=== PATIENT | female | born 1970 | race Asian ===

== ENCOUNTER 2017-03-23 15:25 | Emergency (ER) | payer OTHER ==
[2017-03-23 16:33] LABS: Basophils % (Auto) 0.6 % (0.0-1.8); Eosinophils % (Auto) 1.9 % (0.0-4.3); Hematocrit 42.6 % (30.3-42.9); Hemoglobin 14.3 gm/dl (10.1-14.3); Mean Corpuscular HGB Conc 34 % (30-34); Mean Corpuscular Hemoglobin 31 pg (28-32); Mean Corpuscular Volume 92 fl (79-97); Platelet Count 281 K/mm3 (140-440); Red Blood Count 4.64 M/mm3 (3.65-5.03); White Blood Count 10.2 K/mm3 (4.5-11.0)
[2017-03-23 16:47] LABS: Anion Gap 19 mmol/L; Blood Urea Nitrogen 12 mg/dL (7-17); Calcium 10.4 mg/dL (8.4-10.2); Carbon Dioxide 24 mmol/L (22-30); Chloride 102.4 mmol/L (98-107); Glucose 99 mg/dL (65-100); Potassium 3.9 mmol/L (3.6-5.0); Sodium 141 mmol/L (137-145)
[2017-03-23 17:07] LABS: Bacteria,Urine 1+ /HPF (Negative); Bilirubin,Urine NEG (Negative); Blood,Urine NEG (Negative); Ketones,Urine NEG (Negative); Leukocyte Esterase,Urine LG (Negative); Mucus,Urine 2+ /HPF; Nitrite,Urine NEG (Negative); Protein,Urine <15 mg/dL mg/dL (Negative)
--- NOTE | 2017-03-23 19:39 | XRay Report ---
FINAL REPORT EXAM: XR KNEE 3V LT HISTORY: LT KNEE INJURY WITH SEVERE PAIN TECHNIQUE: Left knee three views 3 images PRIORS: None. FINDINGS: Bone mineralization appears within normal limits. No acute fracture or subluxation is identified. Left knee effusion is suspected. IMPRESSION: 1. No acute osseous abnormality is identified. 2. Left knee effusion is suspected.
[2017-03-23] MEDS ORDERED: ULTRAM PO ONE (23:03)
[2017-03-23] MEDS ORDERED: MOTRIN PO ONE (23:03)
[2017-03-23 23:23] VITALS: BP 120/76
--- NOTE | 2017-03-23 23:51 | Emergency Department Report ---
ED Chest Pain HPI - General Chief Complaint: Chest Pain Stated Complaint: LEFT KNEE INJURY Time Seen by Provider: 03/23/17 22:46 Source: patient Mode of arrival: Ambulatory Limitations: No Limitations - History of Present Illness Initial Comments: 46-year-old female with a past medical history hypothyroidism, myasthenia gravis , and possible elevated cholesterol presents to the hospital and a C4 fall with associated left the pain but also complains of left upper chest pain and intermittent left arm numbness for several weeks. Patient slipped in water fell striking her left knee. Patient complain 8/10 anterior knee pain since fall. Pain is constant, worse palpation and movement. Improved while remaining still. Patient states she has been having intermittent left arm and numbness and tingling feeling like "something is clogged up". Patient also having intermittent sharp left upper wall chest pain. She denies shortness of breath, calf tenderness, edema, unilateral leg swelling, or recent travel. Patient does smoke cigarettes. She is noncompliant with her Synthroid at this time because she missed her doctor's appointment. Severity scale (0 -10): 8 - Related Data Previous Rx's Medication Instructions Recorded Last Taken Type Ibuprofen [Motrin 800 MG tab] 800 mg PO ONCE #30 tablet 03/24/17 Unknown Rx traMADol [Ultram 50 MG tab] 50 mg PO ONCE #20 tablet 03/24/17 Unknown Rx Allergies Allergy/AdvReac Type Severity Reaction Status Date / Time No Known Allergies Allergy Unverified 03/23/17 15:34 Heart Score - HEART Score History: Slightly suspicious EKG: Non-specific Age: 45-65 Risk factors: 1-2 risk factors Troponin: < normal limit HEART Score: 3 ED Review of Systems ROS: Stated complaint: LEFT KNEE INJURY Other details as noted in HPI Comment: All other systems reviewed and negative Other: General: No fever or chills Eyes: No blurry vision or discharge HEENT: No throat pain Neck: No pain Respiratory: No shortness of breath, wheezing, or coughing Cardiovascular: No palpitations, or syncope GI: No abdominal pain, nausea, vomiting, diarrhea : No dysuria or increased frequency Musculoskeletal: No back pain, no joint swelling Neurologic: Denies headache Psychiatric: Denies hallucinations, suicidal ideation, homicidal ideation Skin: No rash or lesions ED Past Medical Hx - Past Medical History Additional medical history: HYPOTHYROIDISM - Surgical History Additional Surgical History: THYMUS GLAND REMOVED - Social History Smoking Status: Current Every Day Smoker Substance Use Type: None - Medications Home Medications: Home Medications Medication Instructions Recorded Confirmed Last Taken Type Ibuprofen [Motrin 800 MG tab] 800 mg PO ONCE #30 tablet 03/24/17 Unknown Rx traMADol [Ultram 50 MG tab] 50 mg PO ONCE #20 tablet 03/24/17 Unknown Rx ED Physical Exam - General Limitations: No Limitations - Other Other exam information: General: No acute distress, Head: Atraumatic, normocephalic Eyes: Normal appearance HEENT: Moist mucous membranes, normal oropharynx Neck: Full range of motion, normal inspection, no midline tenderness CV: Regular rate and rhythm, no murmur, chest wall nontender Respiratory: Clear to auscultation, no wheezes, rales, or crackles Abdomen: Soft, nondistended, nontender, normal bowel sounds, no rebound or guarding Extremities: Full range of motion, no deformity. Tenderness to the patella tendon area with mild effusion. Back: Normal inspection, nontender, full range of motion Neurologic: Alert and oriented 3, cranial nerves grossly intact, sensation intact and equal bilateral extremities, strength 5/5 upper and lower extremities Psychiatric: Normal mood and affect Skin: No rash ED Course Vital Signs 03/23/17 03/23/17 03/23/17 15:31 23:21 23:22 Temperature 98.6 F 98 F Pulse Rate 67 68 Respiratory 18 20 20 Rate Blood Pressure 152/87 Blood Pressure 120/76 [Left] O2 Sat by Pulse 100 98 Oximetry ED Medical Decision Making - Lab Data Result diagrams: 03/23/17 16:12 03/23/17 16:12 Lab Results 03/23/17 03/23/17 03/23/17 Range/Units 16:12 16:12 16:32 WBC 10.2 (4.5-11.0) K/mm3 RBC 4.64 (3.65-5.03) M/mm3 Hgb 14.3 (10.1-14.3) gm/dl Hct 42.6 (30.3-42.9) % MCV 92 (79-97) fl MCH 31 (28-32) pg MCHC 34 (30-34) % RDW 13.0 L (13.2-15.2) % Plt Count 281 (140-440) K/mm3 Lymph % (Auto) 25.2 (13.4-35.0) % [place] % (Auto) 4.4 (0.0-7.3) % Eos % (Auto) 1.9 (0.0-4.3) % Baso % (Auto) 0.6 (0.0-1.8) % Lymph # 2.6 (1.2-5.4) K/mm3 [place] # 0.4 (0.0-0.8) K/mm3 Eos # 0.2 (0.0-0.4) K/mm3 Baso # 0.1 (0.0-0.1) K/mm3 Seg Neutrophils % 67.9 (40.0-70.0) % Seg Neutrophils # 6.9 (1.8-7.7) K/mm3 Sodium 141 (137-145) mmol/L Potassium 3.9 (3.6-5.0) mmol/L Chloride 102.4 (98-107) mmol/L Carbon Dioxide 24 (22-30) mmol/L Anion Gap 19 mmol/L BUN 12 (7-17) mg/dL Creatinine 0.6 L (0.7-1.2) mg/dL Estimated GFR > 60 ml/min BUN/Creatinine Ratio 20.00 % Glucose 99 (65-100) mg/dL Calcium 10.4 H (8.4-10.2) mg/dL Troponin T < 0.010 (0.00-0.029) ng/mL Urine Color Yellow (Yellow) Urine Turbidity Clear (Clear) Urine pH 5.0 (5.0-7.0) Ur Specific [place] 1.026 (1.003-1.030) Urine Protein <15 mg/dl (Negative) mg/dL Urine Glucose (UA) Neg (Negative) mg/dL Urine Ketones Neg (Negative) mg/dL Urine Blood Neg (Negative) Urine Nitrite Neg (Negative) Ur Reducing Substances Not Reportable Urine Bilirubin Neg (Negative) Urine Ictotest Not Reportable Urine Urobilinogen 2.0 (<2.0) mg/dL Ur Leukocyte Esterase Lg (Negative) Urine WBC (Auto) 11.0 H (0.0-6.0) /HPF Urine RBC (Auto) 4.0 (0.0-6.0) /HPF U Epithel Cells (Auto) 4.0 (0-13.0) /HPF Urine Bacteria (Auto) 1+ (Negative) /HPF Urine Mucus 2+ /HPF Urine HCG, Qual Negative (Negative) 03/23/17 03/23/17 Range/Units 18:54 21:55 WBC (4.5-11.0) K/mm3 RBC (3.65-5.03) M/mm3 Hgb (10.1-14.3) gm/dl Hct (30.3-42.9) % MCV (79-97) fl MCH (28-32) pg MCHC (30-34) % RDW (13.2-15.2) % Plt Count (140-440) K/mm3 Lymph % (Auto) (13.4-35.0) % [place] % (Auto) (0.0-7.3) % Eos % (Auto) (0.0-4.3) % Baso % (Auto) (0.0-1.8) % Lymph # (1.2-5.4) K/mm3 [place] # (0.0-0.8) K/mm3 Eos # (0.0-0.4) K/mm3 Baso # (0.0-0.1) K/mm3 Seg Neutrophils % (40.0-70.0) % Seg Neutrophils # (1.8-7.7) K/mm3 Sodium (137-145) mmol/L Potassium (3.6-5.0) mmol/L Chloride (98-107) mmol/L Carbon Dioxide (22-30) mmol/L Anion Gap mmol/L BUN (7-17) mg/dL Creatinine (0.7-1.2) mg/dL Estimated GFR ml/min BUN/Creatinine Ratio % Glucose (65-100) mg/dL Calcium (8.4-10.2) mg/dL Troponin T < 0.010 < 0.010 (0.00-0.029) ng/mL Urine Color (Yellow) Urine Turbidity (Clear) Urine pH (5.0-7.0) Ur Specific [place] (1.003-1.030) Urine Protein (Negative) mg/dL Urine Glucose (UA) (Negative) mg/dL Urine Ketones (Negative) mg/dL Urine Blood (Negative) Urine Nitrite (Negative) Ur Reducing Substances Urine Bilirubin (Negative) Urine Ictotest Urine Urobilinogen (<2.0) mg/dL Ur Leukocyte Esterase (Negative) Urine WBC (Auto) (0.0-6.0) /HPF Urine RBC (Auto) (0.0-6.0) /HPF U Epithel Cells (Auto) (0-13.0) /HPF Urine Bacteria (Auto) (Negative) /HPF Urine Mucus /HPF Urine HCG, Qual (Negative) - EKG Data -: EKG Interpreted by Me (sinus bradycardia with nonspecific T-wave abnormality) - Radiology Data Radiology results: report reviewed (left knee x-ray: Left knee effusion suspected, no acute osseous abnormality is identified) - Medical Decision Making Patient's chest pain is atypical. Cardiac enzymes negative 3, no signs of ST elevation NC. Outpatient follow-up with the encourage for further testing. No fracture identified. Pain medications will be prescribed. - Differential Diagnosis neuropathy, radiculopathy, fracture, contusion, sprain, PE, NC Critical Care Time: No Critical care attestation.: If time is entered above; I have spent that time in minutes in the direct care of this critically ill patient, excluding procedure time. ED Disposition Clinical Impression: Arm paresthesia, left, Atypical chest pain, Left knee sprain Disposition: TO HOME OR SELFCARE Is pt being admited?: No Does the pt Need Aspirin: No Condition: Stable Instructions: Chest Pain (ED), Knee Sprain (ED) Additional Instructions: Follow up with your primary care doctor and the rn nicu suggested for further workup and evaluation. Take the medication as needed for pain. Follow- up with orthopedic doctor regarding your knee symptoms. Please return if symptoms worsen. You may use an [id number] knee brace for additional support Prescriptions: Ibuprofen [Motrin 800 MG tab] 800 mg PO ONCE #30 tablet traMADol [Ultram 50 MG tab] 50 mg PO ONCE #20 tablet Referrals: REINIER SALAMANCA MD [Staff Physician] - 3-5 Days (cardiology ) LAURIE PADILLA MD [Primary Care Provider] - 3-5 Days BRIGIDO SHEPPARD MD [Staff Physician] - 3-5 Days (orthopedic doctor ) Time of Disposition: 00:06
== END 2017-03-24 00:18 | disposition home or self-care (01) ==
LOC: ED 15:25
DX: S83.92XA Sprain of unspecified site of left knee, initial encounter (principal); R07.89 Other chest pain; R20.0 Anesthesia of skin; F17.200 Nicotine dependence, unspecified, uncomplicated; W18.30XA Fall on same level, unspecified, initial encounter; Y93.9 Activity, unspecified; Y92.9 Unspecified place or not applicable; Y99.9 Unspecified external cause status
CPT/HCPCS: 36415; 80048; 81001; 81025; 84484; 85025; 93005; 93010